=== PATIENT | male | born 1975 | race American Indian/Alaskan Native ===

== ENCOUNTER 2017-11-19 01:55 | Emergency (ER) | payer OTHER ==
[2017-11-19] MEDS ORDERED: Silver Sulfadiazine 1% Cream (20 gm) TOP STA (03:38)
[2017-11-19] MEDS ORDERED: Tmp-Smz 800 mg-160 mg DS Tab PO STA (03:38)
[2017-11-19] MEDS ORDERED: Tmp-Smz 800 mg-160 mg DS Tab ONE (03:48)
[2017-11-19] MEDS ORDERED: Silver Sulfadiazine 1% Cream (20 gm) ONE (03:52)
--- NOTE | 2017-11-19 03:53 | C.PDOC ---
History Of Present Illness Patient presents to ED stating he got an injury at work and he pulled the left muscle calf approximately a week ago. Patient reports he applied an ice pack on posterior calf which bursted and he sustained a chemical burn. Patient states that he was taking care of the burn at home then he noticed yellow greenish discharge coming from wound. Denies fever, new injury, numbness or weakness. Time Seen by Provider: 11/19/17 02:42 Chief Complaint (Nursing): Lower Extremity Problem/Injury History Per: Patient History/Exam Limitations: no limitations Onset/Duration Of Symptoms: Days (7) Current Symptoms Are (Timing): Still Present Recent travel outside of the [place]: No - Hip Description Of Injury: denies: Fell - Knee Description Of Injury: denies: Fell - Ankle/Foot Alleviating Factor(s): Ice Therapy Past Medical History Reviewed: Historical Data, Nursing Documentation, Vital Signs Vital Signs: Last Vital Signs Temp 97.7 F 11/19/17 04:04 Pulse 90 11/19/17 04:04 Resp 16 11/19/17 04:04 BP 146/98 H 11/19/17 04:04 Pulse Ox 97 11/19/17 06:45 - Medical History PMH: Asthma Surgical History: No Surg Hx Family History: States: No Known Family Hx - Social History Hx Alcohol Use: No Hx Substance Use: No Review Of Systems Constitutional: Negative for: Fever, Chills Musculoskeletal: Positive for: Other (Left calf wound discharge / burn) Skin: Negative for: Rash Neurological: Negative for: Weakness, Numbness Physical Exam - Physical Exam Appears: Non-toxic Skin: Other (Multiple blistered second degree myles approximately 10x10 cm to left calf ) Head: Atraumatic, Normacephalic Eye(s): bilateral: Normal Inspection, PERRL, EOMI Oral Mucosa: Moist Neck: Normal ROM, Supple Extremity: Normal ROM, Swelling (minimal to posterior calf ), Other (Normal compartments; nontender; soft ) Neurological/Psych: Oriented x3, Normal Speech, Normal Cognition, Cerebellar Signs, Normal Motor Gait: Steady ED Course And Treatment O2 Sat by Pulse Oximetry: 97 (RA) Pulse Ox Interpretation: Normal Medical Decision Making Medical Decision Making: The wound was cleansed with betadine and sterile. Wound vesicles were debrided by me. wound culture obtained and sent. Silvadene and sterile dressing applied. Administered Keflex and Bactrim, Disposition - Disposition Referrals: [facility] at [facility] [Outside] Disposition: HOME/ ROUTINE Disposition Time: 04:00 Condition: GOOD Additional Instructions: Clean the area twice a day and apply the cream. Keep covered. Take antibiotic until completed. Return if worsened. [facility] [address], [place] [phone] Prescriptions: Cephalexin [Keflex] 500 mg PO BID #19 capsule Silver Sulfadiazine 1% [Silver Sulfadiazine] 1 appl TP BID #1 jar Sulfamethoxazole/Trimethoprim [Bactrim DS 800 mg-160 mg] 1 tab PO BID #19 tab Instructions: Cellulitis (Skin Infection), Adult (DC), Chemical Exposure to the Skin (DC) Forms: [employer] (Y[place]i), Work Excuse - Clinical Impression Clinical Impression: Cellulitis - PA / RESEARCH SUBJECT / Resident Statement MD/DO has reviewed & agrees with the documentation as recorded. - Scribe Statement The provider has reviewed the documentation as recorded by the Van Beard All medical record entries made by the Van were at my direction and personally dictated by me. I have reviewed the chart and agree that the record accurately reflects my personal performance of the history, physical exam, medical decision making, and the department course for this patient. I have also personally directed, reviewed, and agree with the discharge instructions and disposition.
[2017-11-19 04:05] VITALS: BP 146/98; PULSE 90; RESP 16; TEMP 97.7
[2017-11-19 06:19] VITALS: O2SAT 97
== END 2017-11-19 04:31 | disposition home or self-care (01) ==
LOC: C.ER 01:55
DX: L03.116 Cellulitis of left lower limb (principal)